=== PATIENT | male | born 1995 | race African-American/Black ===

== ENCOUNTER 2017-06-03 18:33 | Emergency (ER) | payer OTHER ==
[~2017-06-03] VITALS: Ht 170.2 cm; Wt 89.3 kg
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
[~2017-06-03 18:33] MED LIST: AMOXICILLIN500 M1 PO; MAGIC MOUTHWASH PO; PREDNISONE PO; ZITHROMAX PO
[2017-06-03] MEDS ORDERED: MELATONIN3 MG (18:49)
== END 2017-06-03 20:10 | disposition home or self-care (01) ==
LOC: SED 18:33
DX: S01.01XA Laceration without foreign body of scalp, initial encounter (principal); S80.01XA Contusion of right knee, initial encounter; F17.210 Nicotine dependence, cigarettes, uncomplicated; V43.52XA Car driver injured in collision with other type car in traffic accident, initial encounter; Z79.899 Other long term (current) drug therapy
CPT/HCPCS: 12002; 70450; 73562; 99284